=== PATIENT | female | born 1980 | race Two or more races ===

== ENCOUNTER 2016-12-03 07:47 | Inpatient (IN) | payer MEDICAID ==
[~2016-12-03] VITALS: Ht 157.5 cm; Wt 81.6 kg
[2016-12-03] MEDS ORDERED: LACTATED RINGERS 1,000 ML IV SCH (08:31)
[2016-12-03 08:57] VITALS: BP 121/90
[2016-12-03 08:58] LABS: BASOPHILS # (AUTO) 0.1 K/uL (0.00-0.22); BASOPHILS % (AUTO) 0.8 % (0.0-2.0); EOSINOPHILS # (AUTO) 0.1 K/uL (0-0.4); EOSINOPHILS % (AUTO) 1.9 % (0.0-4.0); HEMATOCRIT 37.6 % (36-48); HEMOGLOBIN 12.6 g/dL (12.0-16.0); LYMPHOCYTES # (AUTO) 2.2 K/uL (2.5-16.5); MEAN CORPUSCULAR HEMOGLOBIN 28 pg (27-31); MEAN CORPUSCULAR HGB CONC 34 g/dL (33-37); MEAN CORPUSCULAR VOLUME 83 fL (80-94); MONOCYTES # (AUTO) 0.5 K/uL (0.8-1.0); MONOCYTES % (AUTO) 6.6 % (1.7-9.3); NEUTROPHILS # (AUTO) 4.9 K/uL (1.8-7.7); NEUTROPHILS % (AUTO) 62.7 % (42.2-75.2); PLATELET COUNT (AUTO) 184 K/uL (140-450); RED BLOOD CELL COUNT(AUTO) 4.54 MIL/uL (4.20-5.40); RED CELL DISTRIBUTION WIDTH 13.1 % (11.6-13.7); WHITE BLOOD COUNT (AUTO) 7.8 K/uL (4.8-10.8)
[2016-12-03 09:01] LABS: BILIRUBIN,URINE 1+ (NEGATIVE); BLOOD, URINE NEGATIVE (NEGATIVE); COLOR,URINE YELLOW (YELLOW); LEUKOCYTE ESTERASE ,URINE NEGATIVE (NEGATIVE); NITRITE, URINE NEGATIVE (NEGATIVE); PROTEIN,URINE 1+ (NEGATIVE); UGLUCOSE TRACE (NEGATIVE)
[2016-12-03 09:14] LABS: APPEARANCE,URINE SL HAZY (CLEAR); RBC,URINE 0-2 /HPF (0-5)
[2016-12-03 09:15] LABS: BACTERIA,URINE OCCASSIONAL /HPF (None Seen); ICTOTEST NEGATIVE (NEGATIVE); SQUAMOUS EPITHELIAL CELL,UR 4-10 (MOD) /LPF (0-3 (FEW))
[2016-12-03 09:31] LABS: ALBUMIN 2.3 g/dL (3.4-5.0); ANION GAP 13.7 (8-16); CARBON DIOXIDE 21.8 mmol/L (21-32); CREATININE 0.6 mg/dL (0.6-1.3); POTASSIUM 3.5 mmol/L (3.5-5.1); TOTAL BILIRUBIN 0.3 mg/dL (0.0-1.0); TOTAL PROTEIN, SERUM 6.4 g/dL (6.4-8.2)
--- NOTE | 2016-12-03 09:58 | NUR ---
PATIENT HAS BEEN SCREENED AND CATEGORIZED LOW NUTRITION RISK. PATIENT WILL BE SEEN WITHIN 7 DAYS OF ADMISSION. 12/09/[address]
[2016-12-03] MEDS ORDERED: ePHEDrine 50 MG/ML VIAL ONE (10:15)
[2016-12-03] MEDS ORDERED: BUPIVACAINE-MPF 0.75% 10 ML VIAL INJ ONE (10:15)
[2016-12-03] MEDS ORDERED: ONDANSETRON 4 MG/2 ML VIAL ONE (10:15)
[2016-12-03] MEDS ORDERED: fentaNYL 0.05 MG/ML VIAL ONE (10:28)
[2016-12-03] MEDS ORDERED: MIDAZOLAM 2 MG/2 ML VIAL ONE (10:28)
[2016-12-03] MEDS ORDERED: MORPHINE PRES FREE 10 MG/10 ML AMP IV ONE (10:29)
[2016-12-03] MEDS ORDERED: KETAMINE 500 MG/5 ML VIAL ONE (10:29)
[2016-12-03] MEDS ORDERED: NALOXONE 0.4 MG/ML VIAL ONE (10:42)
[2016-12-03] MEDS ORDERED: diphenhydrAMINE 50 MG/ML VIAL IVP PRN (11:00)
[2016-12-03] MEDS ORDERED: ONDANSETRON 4 MG/2 ML VIAL IVP PRN (11:00)
[2016-12-03] MEDS ORDERED: KETOROLAC 30 MG/ML VIAL IVP PRN ×2 (11:00→13:05)
[2016-12-03] MEDS ORDERED: SIMETHICONE 80 MG TAB.CHEW PO PRN (13:05)
[2016-12-03] MEDS ORDERED: MEASLES, MUMPS, AND RUBELLA 1 VIAL SQVAC PRN (13:05)
[2016-12-03] MEDS ORDERED: HYDROmorphone 1 MG/ML AMP IVP PRN (13:05)
[2016-12-03] MEDS ORDERED: OXYTOCIN 20 UNITS/LR PREMIX 1,000 ML IV ONE (13:41)
[2016-12-03] MEDS: OXYTOCIN 20 UNITS/LR PREMIX 1,000 ML IV SCH (16:30)
[2016-12-04] MEDS: OXYTOCIN 20 UNITS/LR PREMIX 1,000 ML IV SCH (01:19)
[2016-12-04 07:48] LABS: BASOPHILS # (AUTO) 0.1 K/uL (0.00-0.22); BASOPHILS % (AUTO) 1.2 % (0.0-2.0); EOSINOPHILS # (AUTO) 0.2 K/uL (0-0.4); HEMATOCRIT 34.2 % (36-48); LYMPHOCYTES # (AUTO) 1.7 K/uL (2.5-16.5); LYMPHOCYTES % (AUTO) 19.1 % (20.5-51.1); MEAN CORPUSCULAR HEMOGLOBIN 27 pg (27-31); MEAN CORPUSCULAR HGB CONC 32 g/dL (33-37); MEAN CORPUSCULAR VOLUME 84 fL (80-94); MONOCYTES # (AUTO) 0.4 K/uL (0.8-1.0); MONOCYTES % (AUTO) 4.4 % (1.7-9.3); NEUTROPHILS # (AUTO) 6.7 K/uL (1.8-7.7); NEUTROPHILS % (AUTO) 73.3 % (42.2-75.2); PLATELET COUNT (AUTO) 171 K/uL (140-450); RED BLOOD CELL COUNT(AUTO) 4.07 MIL/uL (4.20-5.40); RED CELL DISTRIBUTION WIDTH 13.2 % (11.6-13.7); WHITE BLOOD COUNT (AUTO) 9.1 K/uL (4.8-10.8)
[2016-12-04] MEDS: DOCUSATE SODIUM 100 MG GELCAP PO PRN (11:09)
[2016-12-04] MEDS: BISACODYL 5 MG TABEC PO PRN (11:11)
[2016-12-04] MEDS: oxyCODONE/APAP 5/325 MG 1 TAB TAB PO PRN ×2 (11:14→20:12)
[2016-12-04] MEDS ORDERED: diphenhydrAMINE 50 MG CAP PO SCH (18:30)
[2016-12-04] MEDS ORDERED: diphenhydrAMINE 50 MG CAP PO ONE (18:45)
[2016-12-05] MEDS: oxyCODONE/APAP 5/325 MG 1 TAB TAB PO PRN ×3 (05:36→23:26)
[2016-12-05] MEDS ORDERED: SODIUM PHOSPHATE 118 ML ENEM RC PRN (08:00)
[2016-12-05] MEDS: BISACODYL 5 MG TABEC PO PRN (08:50)
[2016-12-05] MEDS: DOCUSATE SODIUM 100 MG GELCAP PO PRN (08:50)
[2016-12-05] MEDS: ACETAMINOPHEN 325 MG TAB PO PRN (08:55)
[2016-12-06] MEDS: ACETAMINOPHEN 325 MG TAB PO PRN ×2 (04:19→15:20)
[2016-12-06] MEDS: oxyCODONE/APAP 5/325 MG 1 TAB TAB PO PRN (09:38)
[2016-12-07] MEDS: oxyCODONE/APAP 5/325 MG 1 TAB TAB PO PRN ×2 (01:12→12:21)
[2016-12-07] MEDS: BISACODYL 5 MG TABEC PO PRN (10:12)
[2016-12-07] MEDS: DOCUSATE SODIUM 100 MG GELCAP PO PRN (10:13)
[2016-12-07] MEDS ORDERED: FERR325E14 PO (15:13)
[2016-12-07] MEDS ORDERED: IBUP-1842 PO (15:17)
== END 2016-12-07 17:20 | disposition home or self-care (01) | DRG 540 ==
LOC: MLD 07:47 → MFCC 13:45
PROVIDERS: ADMIT Obstetrics & Gynecology; ATTEND Obstetrics & Gynecology
PROC: 10D00Z1 Extraction of Products of Conception, Low, Open Approach (ICD-10-PCS; principal; 2016-12-03 10:30)
DX: O34.211 Maternal care for low transverse scar from previous cesarean delivery (principal); E66.01 Morbid (severe) obesity due to excess calories; O69.1XX0 Labor and delivery complicated by cord around neck, with compression, not applicable or unspecified; O99.214 Obesity complicating childbirth; O24.420 Gestational diabetes mellitus in childbirth, diet controlled; O75.89 Other specified complications of labor and delivery; Z68.32 Body mass index [BMI] 32.0-32.9, adult; Z3A.38 38 weeks gestation of pregnancy; Z37.0 Single live birth; Z28.21 Immunization not carried out because of patient refusal
CPT/HCPCS: 36415; 51702; 80053; 81001; 85025; 86592; 86886; 86900; 86901; 87081; 87086; J0690; J2250; J2270; J2310; J2405; J2590; J3010; J3490; J7060; J7120; Q0163